=== PATIENT | female | born 1990 | race Caucasian/White ===

== ENCOUNTER → 2016-12-28 | Outpatient (CLI) | payer OTHER ==
[2016-05-15 23:15] VITALS: BP 98/65
[~2016-12-28] MED LIST: MELA10CA PO; ONDA4TAB7 PO; PENT100C PO
--- NOTE | 2016-12-28 10:39 | KCIC ---
MR of the left ankle and left foot Indication: Pain for 2 months. Stepped on by a horse. Intermittent swelling.. Technique: Standard multiplanar sequences are obtained. Left ankle Peroneal tendons: Intact, no dislocation Lateral ligaments: Poor definition of the anterior talofibular, posterior talofibular and calcaneofibular ligament compatible with scarring from old injury. No evidence of acute tear or discontinuity. Tibiofibular syndesmosis:Intact. Medial tendons: Posterior tibial and flexor tendons are intact. Medial ligaments: No evidence of acute deltoid ligament tear Anterior tendons: Anterior tibial and extensor tendons are intact. Achilles tendon: Intact Plantar aponeurosis: No acute plantar fasciitis Subtalar joints: Patent Tarsal sinus: Intact Talar Dome: Intact Bones: No significant lesion or acute fracture Fluid: No large effusion. Joints: Mild dorsal spurring at the talonavicular joint. Soft tissues: Small cyst or ganglion posterior to the posterior subtalar joint measures 19 mm diameter. Left foot No bone lesion or acute fracture. No acute bone marrow edema. Lisfranc ligament complex is intact as is tarsometatarsal alignment. No significant tendon tear or tendon sheath fluid. No abnormal soft tissue edema or fluid collection. Impression: 1. Findings compatible with mild lateral ankle ligament scarring. No acute rupture or discontinuity. 2. Small ganglion cyst, posterior to the posterior subtalar joint. Electronically signed by: Clement Pope MD (12/28/2016 10:35 AM) [facility]
--- NOTE | 2016-12-29 11:58 | KCIC ---
MR of the left ankle and left foot Indication: Pain for 2 months. Stepped on by a horse. Intermittent swelling.. Technique: Standard multiplanar sequences are obtained. Left ankle Peroneal tendons: Intact, no dislocation Lateral ligaments: Poor definition of the anterior talofibular, posterior talofibular and calcaneofibular ligament compatible with scarring from old injury. No evidence of acute tear or discontinuity. Tibiofibular syndesmosis:Intact. Medial tendons: Posterior tibial and flexor tendons are intact. Medial ligaments: No evidence of acute deltoid ligament tear Anterior tendons: Anterior tibial and extensor tendons are intact. Achilles tendon: Intact Plantar aponeurosis: No acute plantar fasciitis Subtalar joints: Patent Tarsal sinus: Intact Talar Dome: Intact Bones: No significant lesion or acute fracture Fluid: No large effusion. Joints: Mild dorsal spurring at the talonavicular joint. Soft tissues: Small cyst or ganglion posterior to the posterior subtalar joint measures 19 mm diameter. Left foot No bone lesion or acute fracture. No acute bone marrow edema. Lisfranc ligament complex is intact as is tarsometatarsal alignment. No significant tendon tear or tendon sheath fluid. No abnormal soft tissue edema or fluid collection. Impression: 1. Findings compatible with mild lateral ankle ligament scarring. No acute rupture or discontinuity. 2. Small ganglion cyst, posterior to the posterior subtalar joint. Electronically signed by: Mehrdad Pope MD (12/28/2016 10:35 AM) [facility] DICTATED and SIGNED BY: MEHRDAD POPE MD DATE: 12/28/16 1025 MTDD
== END | disposition home or self-care (01) ==
LOC: KCIC MRI 09:07
PROVIDERS: ATTEND Nurse Practitioner Gerontology
DX: M67.472 Ganglion, left ankle and foot (principal); W55.19XA Other contact with horse, initial encounter
CPT/HCPCS: 73718; 73721

== ENCOUNTER → 2017-03-05 | Outpatient (CLI) | payer OTHER ==
[2016-05-15 23:15] VITALS: BP 98/65
--- NOTE | 2017-03-05 12:04 | RAD ---
INDICATION: Low back pain and bilateral radiculopathy for 5 months. Fall from horse 5 months ago. TECHNIQUE: Sagittal T1, sagittal T2, sagittal STIR, axial T1, and axial T2 sequences are provided. No comparison is available. FINDINGS: There is no malalignment. There is no marrow edema. There is no worrisome marrow lesion. There is preservation of disc height and discs appear well-hydrated. The conus medullaris is normal in signal intensity and in position, only evaluated in sagittal plane. There is minimal subcutaneous edema. There are minimal disc bulges at L4-L5 and L5-S1 along with minimal facet hypertrophy at these 2 levels. There is no disc herniation. There is no canal or foraminal compromise at any level. IMPRESSION: Minimal degenerative disc disease at L4-L5 and L5-S1, without any high-grade canal or foraminal compromise. Electronically signed by: Bryson Ortega MD (03/05/2017 12:00 PM) [facility]
== END | disposition home or self-care (01) ==
LOC: MRI 10:01
PROVIDERS: ATTEND Family Medicine
DX: M51.36 Other intervertebral disc degeneration, lumbar region (principal); M51.37 Other intervertebral disc degeneration, lumbosacral region; M54.16 Radiculopathy, lumbar region; V80.010A Animal-rider injured by fall from or being thrown from horse in noncollision accident, initial encounter; Y93.52 Activity, horseback riding
CPT/HCPCS: 72148

== ENCOUNTER 2017-05-21 18:56 | Emergency (ER) | payer OTHER ==
[~2017-05-21] VITALS: Ht 170.2 cm; Wt 90.7 kg
[2017-05-21] MEDS ORDERED: IV NORMAL SALINE 1000ML BAG 1,000 ML IV SCH (19:42)
[2017-05-21] MEDS ORDERED: ONDANSETRON PF 4 MG/2 ML VIAL. IV ONE ×2 (19:45→21:30)
[2017-05-21] MEDS ORDERED: FAMOTIDINE 20 MG/2 ML VIAL IVP ONE (19:45)
[2017-05-21 19:52] LABS: BASO % 0 % (0-3); EOS % 1 % (0-3); HEMATOCRIT 39.1 % (36.0-47.0); LYMPH # 0.7 x10^3/uL (1.0-4.8); LYMPH % 4 % (24-48); MEAN CORPUSCULAR HEMOGLOBIN 29 pg (25-35); MEAN CORPUSCULAR HGB CONC 33 g/dL (31-37); MEAN CORPUSCULAR VOLUME 87 fL (79-100); MONO % 6 % (0-9); NEUT % 90 % (31-73); PLATELET COUNT 337 x10^3/uL (140-400); RED BLOOD COUNT 4.49 x10^6/uL (3.50-5.40); RED CELL DISTRIBUTION WIDTH 13.9 % (11.5-14.5); WHITE BLOOD COUNT 16.9 x10^3/uL (4.0-11.0)
[2017-05-21] MEDS: fentaNYL PF VIAL 100 MCG/2 ML VIAL IV PRN ×2 (19:52→21:03)
[2017-05-21 19:54] LABS: BILIRUBIN,URINE NEGATIVE (NEG); GLUCOSE,URINE NEGATIVE (NEG); NITRITE,URINE NEGATIVE (NEG); PH,URINE 8.5; PROTEIN,URINE NEGATIVE (NEG-TRACE); UROBILINOGEN,URINE 0.2 mg/dL (0.2 mg/dL)
[2017-05-21 20:06] LABS: BACTERIA,URINE MODERATE /HPF (0-FEW); RBC,URINE RARE /HPF (0-2); SQUAMOUS EPITHELIAL CELL,UR MOD /LPF
[2017-05-21 20:07] LABS: CALCIUM 9.2 mg/dL (8.5-10.1); CREATININE 0.9 mg/dL (0.6-1.0); GFR 75.1; POTASSIUM 3.7 mmol/L (3.5-5.1)
[2017-05-21 20:10] LABS: ALBUMIN 3.8 g/dL (3.4-5.0); TOTAL BILIRUBIN 0.3 mg/dL (0.2-1.0); TOTAL PROTEIN 7.7 g/dL (6.4-8.2)
[2017-05-21] MEDS ORDERED: IV NORMAL SALINE 1000ML BAG 1,000 ML IV ONE (20:30)
[2017-05-21] MEDS ORDERED: ONDA4TAB10 SL (20:58)
[2017-05-21 21:00] VITALS: BP 98/63
--- NOTE | 2017-05-21 21:03 | PHYS DOC ---
Past Medical History Past Medical History: Anemia, Anxiety, Arthritis, Other Additional Past Medical Histor: interstitial cystitis, hormone imbalance, chronic back pain Past Surgical History: Hysterectomy, Tubal ligation, Other Additional Past Surgical Histo: exploratory surgery TO CHECK FOR ENDOMETRIOSIS Alcohol Use: None Drug Use: None Adult General Chief Complaint Chief Complaint: NAUSEA/VOMITING/DIARRHA HPI HPI Patient is a 26 year old female who presents with complaint of nausea, vomiting , diarrhea, and abdominal pain. Patient states that her symptoms started suddenly today. Patient states that she's had too numerous to count episodes of vomiting and has had 2 loose stools since onset of symptoms. Patient states that she is having abdominal pain which is generalized and nonfocal. Patient reports family members at her home with similar symptoms prior to her onset of symptoms. Patient denies any ingestion of spoiled food. Patient has had no fevers associated with her symptoms. Patient has not taken any medications at home to help with her symptoms. Patient has history of chronic back pain and states that her symptoms have exacerbated her back pain. Patient also states she feels very dehydrated and has not been able to drink enough fluids to stay hydrated. Review of Systems Review of Systems Constitutional: Denies fever or chills [] Eyes: Denies change in visual acuity, redness, or eye pain [] HENT: Denies nasal congestion or sore throat [] Respiratory: Denies cough or shortness of breath [] Cardiovascular: Denies chest pain or edema[] GI: Nausea, vomiting, diarrhea, abdominal pain[] : Denies dysuria or hematuria [] Musculoskeletal: Back pain[] Integument: Denies rash or skin lesions [] Neurologic: Denies headache, focal weakness or sensory changes [] All other systems were reviewed and found to be within normal limits, except as documented in this note. Current Medications Current Medications Current Medications Medications (Trade) Dose Ordered Sig/Elisa Start Time Stop Time Status Last Admin Dose Admin Famotidine (Pepcid Vial) 20 mg 1X ONCE 05/21/17 19:45 05/21/17 19:47 DC 05/21/17 19:51 20 MG Fentanyl Citrate (Fentanyl 2ml Vial) 50 mcg PRN Q15MIN PRN 05/21/17 19:45 05/22/17 19:44 05/21/17 19:52 50 MCG Ondansetron HCl (Zofran) 4 mg 1X ONCE 05/21/17 19:45 05/21/17 19:47 DC 05/21/17 19:52 4 MG Sodium Chloride 1,000 ml @ 1,000 mls/hr 1X ONCE 05/21/17 20:30 05/21/17 21:29 05/21/17 20:40 1,000 MLS/HR Allergies Allergies Allergies Coded Allergies Type Severity Reaction Last Updated Verified Penicillins Allergy Unknown rash 10/01/13 Yes Physical Exam Physical Exam Constitutional: Alert, afebrile, appears ill. [] HENT: Normocephalic, atraumatic, bilateral external ears normal, oropharynx moist, no oral exudates, nose normal. [] Eyes: PERRLA, EOMI, conjunctiva normal, no discharge. [] Neck: Normal range of motion, no tenderness, supple, no stridor. [] Cardiovascular: Tachycardia, regular rhythm, no murmur [] Lungs & Thorax: Bilateral breath sounds clear to auscultation [] Abdomen: Bowel sounds normal, soft, minimal tenderness to palpation in all 4 quadrants with no guarding or rebound tenderness, no masses, no pulsatile masses. [] Skin: Warm, dry, no erythema, no rash. [] Back: No tenderness, no CVA tenderness. [] Extremities: No tenderness, no cyanosis, no clubbing, ROM intact, no edema. [] Neurologic: Alert and oriented X 3, normal motor function, normal sensory function, no focal deficits noted. [] Current Patient Data Vital Signs Vital Signs Date Time Temp Pulse Resp B/P (MAP) Pulse Ox O2 Delivery O2 Flow Rate FiO2 05/21/17 19:10 98.2 102 18 110/61 (77) 99 Room Air 98.2 Lab Values Laboratory Tests Test 05/21/17 19:20 White Blood Count 16.9 x10^3/uL (4.0-11.0) H Red Blood Count 4.49 x10^6/uL (3.50-5.40) Hemoglobin 13.0 g/dL (12.0-15.5) Hematocrit 39.1 % (36.0-47.0) Mean Corpuscular Volume 87 fL (79-100) Mean Corpuscular Hemoglobin 29 pg (25-35) Mean Corpuscular Hemoglobin Concent 33 g/dL (31-37) Red Cell Distribution Width 13.9 % (11.5-14.5) Platelet Count 337 x10^3/uL (140-400) Neutrophils (%) (Auto) 90 % (31-73) H Lymphocytes (%) (Auto) 4 % (24-48) L Monocytes (%) (Auto) 6 % (0-9) Eosinophils (%) (Auto) 1 % (0-3) Basophils (%) (Auto) 0 % (0-3) Neutrophils # (Auto) 15.2 x10^3uL (1.8-7.7) H Lymphocytes # (Auto) 0.7 x10^3/uL (1.0-4.8) L Monocytes # (Auto) 0.9 x10^3/uL (0.0-1.1) Eosinophils # (Auto) 0.1 x10^3/uL (0.0-0.7) Basophils # (Auto) 0.0 x10^3/uL (0.0-0.2) Urine Collection Type Void Urine Color Yellow Urine Clarity Clear Urine pH 8.5 Urine Specific Weaver >=1.030 Urine Protein Negative mg/dL (NEG-TRACE) Urine Glucose (UA) Negative mg/dL (NEG) Urine Ketones (Stick) Trace mg/dL (NEG) Urine Blood Negative (NEG) Urine Nitrite Negative (NEG) Urine Bilirubin Negative (NEG) Urine Urobilinogen Dipstick 0.2 mg/dL (0.2 mg/dL) Urine Leukocyte Esterase Small (NEG) Urine RBC Rare /HPF (0-2) Urine WBC 5-10 /HPF (0-4) Urine Squamous Epithelial Cells Mod /LPF Urine Bacteria Moderate /HPF (0-FEW) Urine Mucus Marked /LPF Sodium Level 139 mmol/L (136-145) Potassium Level 3.7 mmol/L (3.5-5.1) Chloride Level 104 mmol/L (98-107) Carbon Dioxide Level 22 mmol/L (21-32) Anion Gap 13 (6-14) Blood Urea Nitrogen 23 mg/dL (7-20) H Creatinine 0.9 mg/dL (0.6-1.0) Estimated GFR (Cockcroft-Gault) 75.1 BUN/Creatinine Ratio 26 (6-20) H Glucose Level 103 mg/dL (70-99) H Calcium Level 9.2 mg/dL (8.5-10.1) Total Bilirubin 0.3 mg/dL (0.2-1.0) Aspartate Amino Transferase (AST) 21 U/L (15-37) Alanine Aminotransferase (ALT) 36 U/L (14-59) Alkaline Phosphatase 68 U/L (46-116) Total Protein 7.7 g/dL (6.4-8.2) Albumin 3.8 g/dL (3.4-5.0) Albumin/Globulin Ratio 1.0 (1.0-1.7) Lipase 192 U/L (73-393) Laboratory Tests 05/21/17 19:20 Laboratory Tests 05/21/17 19:20 EKG EKG Not performed[] Radiology/Procedures Radiology/Procedures Not performed[] Course & Med Decision Making Course & Med Decision Making Pertinent Labs and Imaging studies reviewed. (See chart for details) The patient was treated with IV fluids, fentanyl, Pepcid, and Zofran. On reevaluation, patient states her symptoms have improved. The patient's symptoms appear consistent with an acute viral gastroenteritis. Patient states that she would like to go home at this time. The patient was prescribed Zofran for continued outpatient treatment and nausea. Advised to continue on liquid diet at home and follow-up with primary doctor in 2 days for reevaluation. Advised return emergency department for any worsening symptoms. Patient voiced understanding and in agreement with treatment plan. Dragon Disclaimer Dragon Disclaimer This electronic medical record was generated, in whole or in part, using a voice recognition dictation system. Departure Departure Impression: Primary Impression: Nausea and vomiting Additional Impressions: Diarrhea Dehydration Disposition: 01 HOME, SELF-CARE Condition: IMPROVED Referrals: MARLENA HUSSEIN MD (PCP) Patient Instructions: Dehydration, Adult, Diarrhea, Nausea and Vomiting Additional Instructions: Follow-up he primary doctor in 2-3 days for reevaluation. Return to the emergency department for any worsening symptoms. Scripts Ondansetron (ZOFRAN ODT) 4 Mg Tab.rapdis 1 TAB SL Q6HRS Y for NAUSEA/VOMITING, #15 TAB Prov: CATINA VAZQUEZ MD 05/21/17 Problem Qualifiers Primary Impression: Nausea and vomiting Vomiting type: unspecified Vomiting Intractability: unspecified Qualified Codes: R11.2 - Nausea with vomiting, unspecified Additional Impressions: Diarrhea Diarrhea type: presumed infectious Qualified Codes: A09 - Infectious gastroenteritis and colitis, unspecified CATINA VAZQUEZ MD May 21, 2017 21:03
== END 2017-05-21 21:19 | disposition home or self-care (01) ==
LOC: ER 18:56
DX: E86.0 Dehydration (principal); A09 Infectious gastroenteritis and colitis, unspecified; F41.9 Anxiety disorder, unspecified; G89.29 Other chronic pain; M19.90 Unspecified osteoarthritis, unspecified site; Z88.0 Allergy status to penicillin; Z90.710 Acquired absence of both cervix and uterus
CPT/HCPCS: 36415; 80053; 81001; 83690; 85025; 87086; 96361; 96374; 96375; 96376; 99285; J2405; J3010; J7030; S0028

== ENCOUNTER → 2017-07-11 | Outpatient (CLI) | payer OTHER | END | disposition home or self-care (01) | LOC: PNCL 10:42 | DX: M51.36 Other intervertebral disc degeneration, lumbar region (principal); M79.604 Pain in right leg; F17.210 Nicotine dependence, cigarettes, uncomplicated; Z83.3 Family history of diabetes mellitus; Z88.0 Allergy status to penicillin | CPT/HCPCS: 99214 ==

== ENCOUNTER → 2017-08-22 | Outpatient (CLI) | payer OTHER | END | disposition home or self-care (01) | LOC: PNCL 10:13 | DX: M51.16 Intervertebral disc disorders with radiculopathy, lumbar region (principal); M47.896 Other spondylosis, lumbar region | CPT/HCPCS: 99212 ==

== ENCOUNTER → 2017-11-08 | Outpatient (CLI) | payer OTHER | END | disposition home or self-care (01) | LOC: PNCL 15:12 | DX: M51.16 Intervertebral disc disorders with radiculopathy, lumbar region (principal); M47.896 Other spondylosis, lumbar region | CPT/HCPCS: 99212 ==

== ENCOUNTER → 2017-11-30 | Outpatient (CLI) | payer OTHER ==
[~2017-11-30] MED LIST changes: +IOHEXOL 180 MG/ML 10 ML VIAL.; +LIDOCAINE 1% PF 2 ML VIAL.; -MELA10CA PO; -ONDA4TAB7 PO; -PENT100C PO; +methylPREDNISolone ACETATE 40 MG/ML VIAL.; +methylPREDNISolone ACETATE 80 MG/ML VIAL.
== END | disposition home or self-care (01) ==
LOC: PNCL 09:59
DX: M51.16 Intervertebral disc disorders with radiculopathy, lumbar region (principal); M47.816 Spondylosis without myelopathy or radiculopathy, lumbar region; Z88.0 Allergy status to penicillin; Z90.710 Acquired absence of both cervix and uterus; Z98.51 Tubal ligation status; Z98.890 Other specified postprocedural states
CPT/HCPCS: 62323; J1030; J1040; Q9965

== ENCOUNTER → 2018-03-12 | Outpatient (CLI) | payer OTHER ==
[~2018-03-12] MED LIST changes: -IOHEXOL 180 MG/ML 10 ML VIAL.; -LIDOCAINE 1% PF 2 ML VIAL.; +MELA10CA PO; +ONDA4TAB10 SL; +ONDA4TAB7 PO; +PENT100C PO; +TIZA4TAB PO; -methylPREDNISolone ACETATE 40 MG/ML VIAL.; -methylPREDNISolone ACETATE 80 MG/ML VIAL.
--- NOTE | 2018-03-12 23:06 | PAIN ---
DATE OF SERVICE: 03/12/2018 DIAGNOSES: Lumbar radiculopathy with lumbar degenerative disk disease, lumbar and lumbosacral spondylosis. HISTORY OF PRESENT ILLNESS: The patient is a 27-year-old female who returns for followup status post lumbar epidural steroid injection x 1. The patient reports she did fairly well about a 50% improvement for about a month and gradually returned with pain in the low back. The right lower leg, however, is doing much better. The patient reports there is still some tingling and numbness occasionally with walking and standing, but doing much better. Her main complaint is her low back pain without significant radiation. At this time, the patient reports it an aching, sharp, dull, stabbing, burning, tingling, becoming more constant in the low back, worse with standing, walking, even with prolonged sitting for more than 15-20 minutes. The patient reports it is awakening her from sleep about 2-3 times a night on average with pain in the back itself. The patient reports the pain is an 8 on a scale of 10 at its worst, 6 on average, 5 at its least and is a 6 today. The patient reports no new motor or sensory deficits, has still significant pain across the low back itself. She has been increasing her activity and is walking about 5 miles a day through her activities at work as well, doing some stretching and strengthening exercises on her own as she has had some physical therapy in the past and she is still doing the exercises with these, but the pain is still persistent. PHYSICAL EXAMINATION: VITAL SIGNS: The patient's blood pressure is 117/80, pulse 99, respirations 18, temperature is 98.6 degrees Fahrenheit, height is 5 feet 7 inches and weight is 205 pounds. GENERAL: The patient is awake, alert, oriented, appropriate, very pleasant demeanor. HEENT: Shows normocephalic, atraumatic. Extraocular movements are intact and symmetrical. Oral cavity: Mucous membranes moist and pink. Dentition is intact. NECK: Shows anterior throat supple without palpable lymphadenopathy noted. Swallow reflex is symmetrical. CHEST: Shows normal on inspection. Breath sounds clear to auscultation bilaterally. HEART: Shows S1, S2 clear. No murmurs auscultated. ABDOMEN: Soft, nontender, nondistended. No palpable organomegaly. No rebound or guarding demonstrated. BACK: Shows spine grossly in the midline, normal appearing thoracic kyphosis and minor flattening of lumbar lordotic curvature. Lumbar paraspinous muscle shows symmetrical on inspection. On palpation shows some moderate tenderness, but only diffusely with palpation bilaterally. With rotational motion, however, the patient has significant tenderness with extension of the lumbar spine and axial loading of the low back, which is very tender on both sides, right and left without specific radiation. This is true with right and left lateral rotation, slightly more to the right than the left, but not with forward flexion, was performed fully at 45 degrees without significant pain reported. EXTREMITIES: The patient's lower extremities show deep tendon reflexes at 2+ in the patellar, 1+ tendo calcaneus tendons. Motor exam is approximately 4 on a scale of 5 with right dorsiflexion and extension, 5/5 on the left. Peripheral pulses are 1+ posterior tibia. No peripheral edema is noted. Options were discussed with the patient. The patient's old chart reviewed as is her current medication regimen updated. Current review of systems is updated today as well and we will preauthorize the patient for bilateral lumbar facet joint injection at the L4-L5 and L5-S1 levels. She is having significant axial loading pain with extension of the lumbar spine consistent with facet joint syndrome and facet mediated pain. The patient will continue to do her physical therapy exercises as she is doing strengthening and stretching exercises on her own and continue with her walking. The patient was cautioned as to heavy lifting and extended time on her feet as well as extended time sitting as well. The patient will return to the clinic once preauthorization is obtained. We will plan on bilateral L4-L5 and L5-S1 facet joint injections at that time. ILIA OSBORNE MD DR: GEORGINA/linwood JOB#: [id number] / [id number]
== END | disposition home or self-care (01) ==
LOC: PNCL 15:01
PROVIDERS: ATTEND Anesthesiology
DX: M51.16 Intervertebral disc disorders with radiculopathy, lumbar region (principal); M47.897 Other spondylosis, lumbosacral region; Z86.2 Personal history of diseases of the blood and blood-forming organs and certain disorders involving the immune mechanism; Z86.39 Personal history of other endocrine, nutritional and metabolic disease; Z90.710 Acquired absence of both cervix and uterus; Z88.0 Allergy status to penicillin; Z83.3 Family history of diabetes mellitus; Z82.49 Family history of ischemic heart disease and other diseases of the circulatory system
CPT/HCPCS: 99212

== ENCOUNTER → 2018-03-29 | Outpatient (CLI) | payer OTHER ==
[~2018-03-29] MED LIST changes: +BUPIVACAINE MPF 0.25% 10 ML VIAL. ONE; +IOHEXOL 180 MG/ML 10 ML VIAL. ONE; +LIDOCAINE 2% PF Vial for OR 5 ML VIAL. ONE; +methylPREDNISolone ACETATE 40 MG/ML VIAL. ONE; +methylPREDNISolone ACETATE 80 MG/ML VIAL. ONE
--- NOTE | 2018-03-29 22:33 | PAIN ---
DATE OF SERVICE: 03/29/2018 DIAGNOSES: Lumbar degenerative disk disease with lumbar and lumbosacral spondylosis. History of present illness: The patient is a 27-year-old female who returns for followup status post lumbar epidural steroid injection x 1 with good relief of the pain in her leg with still significant pain in the low back. We had preauthorized her for bilateral facet joint injections today. She would like to proceed with this, still significant pain in the low back bilaterally, somewhat worse on the right than the left present bilaterally without specific radiation into the lower extremity at this time. The patient reports the pain is tingling, burning, stabbing, becoming more constant and more severe, aching, sharp, tight. The patient reports it is shooting at times into the right hip. The patient reports it is 8 on a scale of 10 at its worst, 6 on average, 5 at its least and is a 6 today. The patient reports no new motor or sensory deficits, no new bowel or bladder incontinence or other complaints. Reports it awakens her from sleep about every 4-5 hours, worse with standing, walking, even with prolonged sitting; however, the pain is significant, especially with extension of the lumbar spine. PHYSICAL EXAMINATION: VITAL SIGNS: The patient's blood pressure 117/74, pulse 90, respirations 18, temperature 98.3 degrees Fahrenheit, height 5 feet 7 inches and weight is 206 pounds. GENERAL: The patient is awake, alert, oriented, appropriate, very pleasant in demeanor. HEENT: Head shows normocephalic, atraumatic. Extraocular movements intact and symmetrical. Oral cavity: Mucous membranes are moist and pink. Dentition is intact. NECK: Shows anterior throat supple without palpable lymphadenopathy noted. Swallow reflex is symmetrical. CHEST: Shows normal with inspection. Breath sounds clear to auscultation bilaterally. HEART: Shows S1, S2 clear. No murmurs auscultated. ABDOMEN: Soft, nontender, nondistended. No palpable organomegaly is noted. No rebound or guarding demonstrated. BACK: Shows spine grossly in the midline. The patient's back shows moderate tenderness with palpation in the lower lumbar distribution bilaterally, but without radiation. No tenderness over the sacrum or sacroiliac regions. The patient has good rotational motion with some minor tenderness with far right lateral rotation past 10 degrees as well as left lateral rotation with pain on the right side and extension, significant pain bilaterally in the low back and forward flexion decreases pain moderately. EXTREMITIES: The patient's lower extremities show deep tendon reflexes 2+ in the patellar and 1+ tendo-calcaneus tendons. Motor exam is approximately 4 on a scale of 5 with right dorsiflexion and extension, 5/5 on the left. Peripheral pulses are 1+ posterior tibial. No peripheral edema is noted. Options were discussed with the patient. The patient's old chart was reviewed as her current medication regimen updated. Current review of systems updated today as well. We will proceed with bilateral L4-L5 and L5-S1 facet joint injections today with fluoroscopic guidance. Risks were again discussed including, but not limited to bleeding, infection, possibility of epidural hematoma, subsequent neurologic compromise, dural puncture, headaches, spinal cord and/or nerve damage, side effects of steroid medication and poor results regarding pain control. The patient understands and wished to proceed. The patient is to return to clinic in approximately 2 weeks for followup. Followup was counseled as to return appointment, activity level and side effects to be aware of. DIAGNOSIS: Lumbar and lumbosacral spondylosis, lumbar degenerative disk disease. PROCEDURES: Bilateral L4-L5 and L5-S1 facet joint injections using C-arm fluoroscopic guidance under sterile prep and drape using local anesthetic. MEDICATION INJECTED: A total of 4 mL of 0.25% bupivacaine, total of 2 mL of Isovue for contrast, total of 120 mg Depo-Medrol. CONDITION AT DISCHARGE: Stable. The patient tolerated procedure well, had no complications. ILIA OSBORNE MD DR: GEORGINA/linwood JOB#: [id number] / [id number]
== END | disposition home or self-care (01) ==
LOC: PNCL 08:51
PROVIDERS: ATTEND Anesthesiology
DX: M47.817 Spondylosis without myelopathy or radiculopathy, lumbosacral region (principal); M51.36 Other intervertebral disc degeneration, lumbar region; Z88.0 Allergy status to penicillin
CPT/HCPCS: 64493; 64494; J1030; J1040; J2001; J3490; Q9965

== ENCOUNTER → 2018-04-22 | Outpatient (CLI) | payer OTHER ==
[~2018-04-22] MED LIST changes: -BUPIVACAINE MPF 0.25% 10 ML VIAL. ONE; -IOHEXOL 180 MG/ML 10 ML VIAL. ONE; -LIDOCAINE 2% PF Vial for OR 5 ML VIAL. ONE; -methylPREDNISolone ACETATE 40 MG/ML VIAL. ONE; -methylPREDNISolone ACETATE 80 MG/ML VIAL. ONE
--- NOTE | 2018-04-23 01:12 | PAIN ---
DATE OF SERVICE: 04/22/2018 PROGRESS NOTE FOR PAIN CLINIC DIAGNOSES: Lumbar degenerative disk disease with lumbar and lumbosacral spondylosis. HISTORY OF PRESENT ILLNESS: The patient is a 27-year-old female who returns to follow up status post bilateral L4-L5 and L5-S1 facet joint injections. The patient reports about 85% improvement after the injections for several days following the injection and then the pain began to return, but only gradually. It was not an abrupt return over the next 1-2 days. It came back essentially baseline in the low back, slightly worse on the right than the left. The patient reports it is a 7 on a scale of 10 at its worst, 6 on average, 4 at its least and it is a 4 today. The patient reports it is aching, sharp, dull, tight, stabbing, burning, tingling and becoming more severe, more constant in the low back itself. Occasional pain in the right posterior hip, posterior gluteus, but without radiation to the lower extremity. The patient reports it is worse with extension of the lumbar spine, especially axial loading and extension and better with forward flexion. Right and left lateral rotation is moderately tender bilaterally. The patient reports it awakens her from sleep very rarely, better off of her feet. Sitting can exacerbate it as well, however. The patient reports that she was increasing her distance walking, doing work activity, standing on her feet longer, getting in and out of a car easier for the first few days. PHYSICAL EXAMINATION: VITAL SIGNS: The patient's blood pressure is 115/81, pulse 83, respirations 18 and temperature 98.1 degrees Fahrenheit. Height is 5 feet 7 inches, weight is 204 pounds. GENERAL: The patient is awake, alert, oriented, appropriate, very pleasant demeanor. HEENT EXAMINATION: Shows normocephalic, atraumatic. Extraocular movements are intact and symmetrical. Oral cavity, mucous membranes are moist and pink. Dentition is intact. NECK: Shows anterior throat supple, without palpable lymphadenopathy noted. Swallow reflex is symmetrical. CHEST: Shows normal with inspection. Breath sounds are clear to auscultation bilaterally. HEART: Shows S1, S2 clear. No murmurs auscultated. ABDOMEN: Soft, nontender and nondistended. No palpable organomegaly is noted. No rebound or guarding demonstrated. BACK: Shows spine grossly in the midline. Normal-appearing thoracic kyphosis and some minor flattening of the lumbar lordotic curvature. Lumbar paraspinous muscle shows symmetrical on inspection. On palpation, it shows some moderate tenderness but only diffusely bilaterally without radiation. The patient shows good rotational motion with some significant tenderness with extension of the lumbar spine and axial loading bilaterally, slightly worse on the right than the left. This is true with right and left lateral rotation, greater than 10 degrees with more pain on the right than the left with rotation as well. No radiation demonstrated. EXTREMITIES: Lower extremities show deep tendon reflexes 2+ in the patellar tendons, 1+ tendo calcaneus tendons. Motor exam is approximately 4 on a scale of 5 on the right and 5/5 on the left with dorsiflexion, extension, quadriceps and hamstring flexion. Peripheral pulses are 1+ posterior tibia. No peripheral edema is noted bilaterally. Options were discussed with the patient. The patient's old chart was reviewed as was her current medication regimen updated. Current review of systems updated today as well. We will preauthorize the patient for radiofrequency ablation of the bilateral L4-L5 and L5-S1 medial branches, as the patient has done very well with the diagnostic facet injections and had diagnostic facet injections performed about 1 year ago as well with similar results and would like to proceed with radiofrequency ablation. We will wait for preauthorization and have the patient return at that time. ILIA OSBORNE MD DR: GEORGINA/linwood JOB#: [id number] / [id number]
== END | disposition home or self-care (01) ==
LOC: PNCL 14:29
PROVIDERS: ATTEND Anesthesiology
DX: M51.36 Other intervertebral disc degeneration, lumbar region (principal); M47.897 Other spondylosis, lumbosacral region
CPT/HCPCS: 99212

== ENCOUNTER → 2018-05-23 | Outpatient (CLI) | payer OTHER ==
[~2018-05-23] MED LIST changes: +BUPIVACAINE MPF 0.25% 10 ML VIAL. ONE; +LIDOCAINE 2% PF Vial for OR 5 ML VIAL. ONE; +methylPREDNISolone ACETATE 40 MG/ML VIAL. ONE; +methylPREDNISolone ACETATE 80 MG/ML VIAL. ONE
--- NOTE | 2018-05-23 20:08 | PAIN ---
DATE OF SERVICE: 05/23/2018 PROGRESS NOTE FOR PAIN CLINIC DIAGNOSES: Lumbar degenerative disk disease, lumbar and lumbosacral spondylosis. HISTORY OF PRESENT ILLNESS: The patient is a 27-year-old female who returns for followup status post lumbar facet injections with very good results about 90% improvement after the injections and scheduled for radiofrequency today. She would like to proceed with this. The patient reports still pain in the low back bilaterally, worse on the right than the left, aching, sharp, tight, dull, sometimes tingling, burning, stabbing, becoming more constant, more severe, rated 8 on a scale of 10 at its worse, 5 on average, 4 at its least and is an 8 today. The patient reports it is worse with walking and standing, change in positions, especially with extension of the lumbar spine and axial loading as well as rotation but better with forward flexion. The patient reports no significant radiation to lower extremities and pain in the right posterior gluteus and thighs though on occasion. The patient reports no new motor or sensory deficits and no new bowel or bladder incontinence or other complaints. The patient reports it is awakening her from sleep at least every 5-6 hours. PHYSICAL EXAMINATION: VITAL SIGNS: The patient's blood pressure is 134/72, pulse 87, respirations are 16 and temperature is 98.3 degrees Fahrenheit. Height is 5 feet 7 inches and weighs 202 pounds. GENERAL: The patient is awake, alert, oriented, appropriate and very pleasant demeanor. HEENT: Head shows normocephalic and atraumatic. Extraocular movements are intact and symmetrical. Oral cavity, mucous membranes are moist and pink. Dentition is intact. NECK: Shows anterior throat supple without palpable lymphadenopathy noted. Swallow reflex symmetrical. CHEST: Shows normal on inspection. Breath sounds clear to auscultation bilaterally. HEART: Shows S1 and S2 clear. No murmurs auscultated. ABDOMEN: Obese, soft, nontender and nondistended. No palpable organomegaly is noted. No rebound or guarding demonstrated. BACK: Shows spine grossly in the midline. Normal-appearing thoracic kyphosis and some minor flattening of lumbar lordotic curvature. Lumbar paraspinous muscle shows symmetrical on inspection, on palpation shows some mild tenderness to moderate tenderness with palpation but only diffusely without radiation. The patient's back shows good rotational motion with again some moderate tenderness, greater to the right than the left with greater than 10 degrees, right rotation and also extension greater than 10 degrees is painful bilaterally, again worse on the right than the left and with forward flexion decreases the pain to a moderate extent. EXTREMITIES: The patient's lower extremities showed deep tendon reflexes at 2+ in then patella and 1+ tendo-calcaneus tendons. Motor exam is approximately 4 on a scale of 5 with right dorsiflexion and extension and 5/5 on the left. Peripheral pulses are 1+ posterior tibia. No peripheral edema is noted bilaterally. Options were discussed with the patient. The patient's old chart was reviewed as well as her current medication regimen updated. Current review of systems updated today as well. We will proceed with bilateral radiofrequency ablation of the medial branch at the L4-L5 and L5-S1 levels using C-arm fluoroscopic guidance. Risks were again discussed including, but not limited to bleeding, infection, possibility of epidural hematoma and subsequent neurological compromise, dural puncture, headaches, spinal cord and/or nerve damage, side effects of steroid medication as well as poor results regarding pain control. Potential thermal destruction of the surrounding tissues, nerve roots, motor nerves with paralysis as well as exposure to fluoroscopy. The patient understands and wished to proceed. The patient will return to the clinic in approximately 2 weeks for followup, was counseled as to return appointment, activity level and side effects to be aware of. DIAGNOSIS: Lumbar and lumbosacral spondylosis. PROCEDURE: Bilateral radiofrequency ablation, L4-L5 and L5-S1 medial branches under sterile prep and drape using local anesthetic using C-arm fluoroscopic guidance. MEDICATION INJECTED: A total of 6 mL of 2% lidocaine after motor testing, which was negative at each level but prior to radiofrequency ablation also total of 6 mL of 0.25% bupivacaine 1 mL at each level after radiofrequency ablation mixed with 120 mg total Depo-Medrol. Also, please see radiofrequency flow sheet for times, impedances, levels, temperatures, etc. CONDITION AT DISCHARGE: Stable. The patient tolerated the procedure well and had no complications. ILIA OSBORNE MD DR: GEORGINA/linwood JOB#: [id number] / [id number]
== END | disposition home or self-care (01) ==
LOC: PNCL 12:47
PROVIDERS: ATTEND Anesthesiology
DX: M47.817 Spondylosis without myelopathy or radiculopathy, lumbosacral region (principal); Z90.710 Acquired absence of both cervix and uterus; Z98.51 Tubal ligation status
CPT/HCPCS: 64635; 64636; J1030; J1040; J2001; J3490; 64493; 64494

== ENCOUNTER → 2018-06-20 | Outpatient (CLI) | payer OTHER ==
[~2018-06-20] MED LIST changes: -BUPIVACAINE MPF 0.25% 10 ML VIAL. ONE; -LIDOCAINE 2% PF Vial for OR 5 ML VIAL. ONE; -methylPREDNISolone ACETATE 40 MG/ML VIAL. ONE; -methylPREDNISolone ACETATE 80 MG/ML VIAL. ONE
--- NOTE | 2018-06-22 04:45 | PAIN ---
DATE OF SERVICE: 06/21/2018 PROGRESS NOTE FOR PAIN CLINIC DIAGNOSES: Lumbar radiculopathy with lumbar spondylosis and lumbar degenerative disk disease. HISTORY OF PRESENT ILLNESS: The patient is a 27-year-old female who returns for followup status post radiofrequency ablation in the L4-L5 and L5-S1 medial branches bilaterally. The patient reports she is doing very well at 90% improvement overall. Pain is decreased with sore for about the first week and half to 2 weeks but after that became very much more comfortable. She has been increasing her activity with greater ease and comfort, household activities, walking, standing, traveling and doing work activities as well. We would like to be released back to work. The patient reports the pain is very minimal at this time, rates it as a 3 on a scale of 10 at its worse, 1 on average, 0 at its least and is a 1 today. The patient reports it is tingling and aching at times but dull tightness in the low back, occasionally into the right lower extremity. She does have some radicular pain from a separate issue but generally well controlled. The patient reports she is sleeping well at night, doing most of daily activities with greater ease and comfort and would like to return to work. PHYSICAL EXAMINATION: VITAL SIGNS: The patient's blood pressure 113/74, pulse 79, respirations 16 and temperature 98.6 degrees Fahrenheit. Weight is 204 pounds. GENERAL: The patient is awake, alert, oriented, appropriate and very pleasant demeanor. HEENT: Head shows normocephalic and atraumatic. Extraocular movements are intact and symmetrical. Oral cavity: Mucous membranes moist and pink. Dentition intact. NECK: Shows anterior throat supple without palpable lymphadenopathy noted. Swallow reflex symmetrical. CHEST: Shows normal on inspection. Breath sounds clear to auscultate bilaterally. HEART: Shows S1 and S2 clear. No murmurs auscultated. ABDOMEN: Soft, nontender and nondistended. No palpable organomegaly is noted. No rebound or guarding demonstrated. BACK: Shows spine grossly in the midline. Normal appearing thoracic kyphosis, lumbar lordotic curvature. Lumbar paraspinous muscle shows symmetrical on inspection. It is only very mild tenderness with palpation in the low lumbar distribution but without radiation. The patient has good rotational motion with much better improvement with decreased pain with extension from previous exam. Forward flexion performed fully without difficulty as well as and left lateral rotation past 10 degrees. EXTREMITIES: The patient's lower extremities show deep tendon reflexes at 2+ in the patellar and are 1+ in the tendo-calcaneus tendons. Motor exam is strong with 4/5 right, 5/5 left dorsiflexion, extension, quadriceps and hamstring flexion. Peripheral pulses are 1+ posterior tibial. No peripheral edema is noted bilaterally. Options were discussed with the patient. The patient's old chart was reviewed as well as her current medication regimen updated. Current review of systems updated and we will hold on any further procedures at this time. The patient was encouraged to increase her activity as tolerated. I would like a note for work as she feels she can perform her activities at work without significant impairment or restriction. The patient was given a note reflecting this and will follow up at this time on an as needed basis. ILIA OSBORNE MD DR: GEORGINA/linwood JOB#: [id number] / [id number]
== END | disposition home or self-care (01) ==
LOC: PNCL 13:01
PROVIDERS: ATTEND Anesthesiology
DX: M47.26 Other spondylosis with radiculopathy, lumbar region (principal); M51.36 Other intervertebral disc degeneration, lumbar region
CPT/HCPCS: G0463

== ENCOUNTER → 2019-05-21 | Outpatient (CLI) | payer OTHER ==
[~2019-05-21] MED LIST changes: -TIZA4TAB PO; +TIZA4TAB2 PO
--- NOTE | 2019-05-21 10:45 | PAIN ---
DATE OF SERVICE: 05/21/2019 PROGRESS NOTE FOR PAIN CLINIC DIAGNOSES: Lumbar and lumbosacral spondylosis. HISTORY OF PRESENT ILLNESS: The patient is a 28-year-old female who returns for followup status post radiofrequency ablation performed on 05/23/2018. The patient did very well with near 100% improvement for about 8 months. The patient reports the pain began to return after that time in the low back itself, but not radiating into the lower extremities. The patient reports it is in the low back bilaterally, somewhat worse on the right than the left, but present bilaterally, worse with extension of the lumbar spine and axial loading of the low back, also rotational motion, especially to the right, but also to the left. The patient reports it is worse with position changing, standing, walking, also with prolonged sitting, better with lying down, has been awaken her from sleep over the past month about every 4-6 hours. The patient reports the pain is 8 on a scale of 10 at its worst in the past week, 5 on average, 4 at its least and is a 5 today. The patient reports it is aching, sharp, tight, dull, shooting across the low back with tingling, burning pain, stabbing, becoming more constant and severe in the back itself, especially with extension. 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 The patient reports no new motor or sensory deficits. Initially, she was doing much better with increased distance walking, doing work activities, household activities, cleaning. She rode her horse for the first time in years very comfortably last spring as well. The patient reports no new motor or sensory deficits, no new bowel or bladder incontinence. PHYSICAL EXAMINATION: VITAL SIGNS: The patient's blood pressure 112/77, pulse 78, respirations 16, temperature 99.0 degrees Fahrenheit, weight is 202 pounds. GENERAL: The patient is awake, alert, oriented, appropriate, very pleasant demeanor. HEENT: Shows normocephalic, atraumatic. Extraocular movements are intact and symmetrical. Oral cavity: Mucous membranes moist and pink. Dentition is intact. NECK: Shows anterior throat supple without palpable lymphadenopathy noted. Swallow reflex symmetrical. CHEST: Shows normal on inspection. Breath sounds are clear bilaterally. HEART: Shows S1, S2 clear. No murmurs auscultated. ABDOMEN: Soft, nontender, nondistended. BACK: Shows spine grossly in the midline. Normal appearing thoracic kyphosis, some minor flattening of lumbar lordotic curvature. Lumbar paraspinous muscle shows symmetrical on inspection, on palpation shows some mild tenderness superiorly and then moderate tenderness in the inferior aspect of the lumbar paraspinous musculature bilaterally. The patient shows good rotational motion with significant pain with right lateral rotation past 10 degrees, also left lateral rotation past 10 degrees with mild pain, extension of the lumbar spine, however, causes significant pain across the low back, again worse on the right than the left with axial loading of the lumbar spine. Forward flexion decreases the pain significantly. EXTREMITIES: The patient's lower extremities show deep tendon reflexes 2+ in the patellar, 1+ tendo-calcaneus tendons. Motor exam is approximately 4 on a scale of 5 on the right with dorsiflexion and extension, 5/5 on the left. Peripheral pulses are 1+ posterior tibia. No peripheral edema is noted bilaterally. Options were discussed with the patient. The patient's old chart was reviewed as her current medication regimen updated. Current review of systems updated today as well. We will preauthorize the patient for repeat radiofrequency ablation of bilateral L4-L5 and L5-S1 medial branches. The patient did very well with this in the past with about 8 months of near 100% improvement with the pain returning in identical pattern to that which she had prior to the radiofrequency ablation. The patient will continue with stretching and strengthening exercises, also is taking steroids for upper respiratory bronchitis currently. We will not give any additional oral steroids at this time. The patient will wait for preauthorization for radiofrequency ablation, again with significant pain with axial loading in the low back, L4-L5 and L5-S1 facet joints with excellent results after previous radiofrequency ablation in 04/2018. ILIA OSBORNE MD DR: GEORGINA/linwood JOB#: [id number] / [id number]
== END | disposition home or self-care (01) ==
LOC: PNCL 09:06
PROVIDERS: ATTEND Anesthesiology
DX: M47.817 Spondylosis without myelopathy or radiculopathy, lumbosacral region (principal)
CPT/HCPCS: G0463

== ENCOUNTER → 2020-04-05 | Outpatient (CLI) | payer OTHER ==
[~2020-04-05] MED LIST changes: +[UNRECOGNIZED DRUG - REMARK]
--- NOTE | 2020-04-05 14:01 | PDOC ---
Progress Note - Pain Clinic Date of Service: DOS: DATE: 04/05/20 TIME: 13:56 Diagnosis: Dx: Lumbar degenerative disc disease with lumbar and lumbosacral spondylosis History or Present Illness: HPI: 29-year-old female returns follow-up status post radiofrequency ablation most recently April 2018 patient did very well with about 8 months. Of near 100% improvement with the pain returning now in the bilateral aspects of the low back right and the left patient reports no specific radiation to the lower extremities but pain in the hips across the low back worse with standing bending the spine walking and sitting for prolonged periods patient reports is aching sharp dull tight shooting across the back with tingling and burning sensation that can be constant or severe especially with extension and axial loading of the lumbar spine such as standing for prolonged periods or driving for prolonged. Patient reports pain to 7 on scale 10 is worse over the past week 6 on average 5 its least and is a 6 today. Patient reports no new motor or sensory deficits no bowel or bladder incontinence but still significant pain in the low back itself significantly improved with radiofrequency ablation as noted of April 2018. Patient was unable to follow-up with her appointments since that time due to financial restrictions but is now wishing to follow-up and get additional treatment, as she did very well from the previous radiofrequency ablation. Patient reports no new bowel or bladder incontinence no loss of motor function but significant fatigability of the low back Physical Exam: VS: Blood pressure is 106/71 pulse 90 respirations 18 temperature 98.2 F weight is 190 pounds PE: PHYSICAL EXAMINATION: GENERAL: The patient is awake, alert, oriented, appropriate, very pleasant demeanor HEENT: Shows normocephalic, atraumatic. Extraocular movements are intact and sy mmetrical. Oral cavity: Mucous membranes moist and pink. NECK: Shows anterior throat supple without palpable lymphadenopathy noted. Swallow reflex symmetrical. CHEST: Shows normal on inspection. Breath sounds are clear bilaterally, no rales rhonchi or wheezes. HEART: Shows S1, S2 clear. No murmurs auscultated. ABDOMEN: Soft, nontender, nondistended, obese. No palpable organomegaly is noted. No rebound or guarding demonstrated. BACK: Shows spine grossly in the midline. Normal-appearing cervical lordotic curvature. There is slightly increased thoracic kyphosis, some minor flattening of the lumbar lordotic curvature. Lumbar paraspinous muscles show symmetrical on inspection, on palpation shows some moderate tenderness diffusely throughout the upper, middle and lower distribution of the paraspinous muscles bilaterally, without specific trigger points, without radiation of pain. The patient has good rotational motion of the lumbar spine, with significant pain reported with extension lumbar spine greater than 10 degrees this is better with forward flexion of 45 degrees right and left lateral rotation shows moderate tenderness bilaterally at 10 degrees right and left but without radiation into the lower extremities. No tenderness over the spinous processes, sacrum or sacroiliac regions. EXTREMITIES: Lower extremities show deep tendon reflexes 2+ in the patellar and tendo calcaneus tendons. Motor exam is 4 on a scale of 5 with right dorsiflexion, extension, quadriceps and hamstring flexion and 5/5 on the left. Peripheral pulses are 1+ posterior tibial. No peripheral edema is noted bilaterally. Lower extremities are warm and dry to touch, equal in color and appearance. SKIN: Shows warm and dry, good turgor. No edema. No sores, rashes or bruising throughout. Procedure: Procedure: Options were discussed with the patient. Patient's old chart was reviewed as her current medication regimen updated current review of systems updated today as well. We will preauthorize patient for radiofrequency ablation of the bilateral medial branches L4-5 and L5-S1. Patient done very well with this procedure in the past and has identical symptoms to those of which she had for the last treatment. Meantime patient will maintain with stretching and strength exercises oral analgesics as current. Medication Injected: Med Injected: None Condition at Discharge: Condition at Discharge: Condition at discharge is stable ILIA OSBORNE MD Apr 05, 2020 14:01
== END ==
LOC: PNCL 13:01
PROVIDERS: ATTEND Anesthesiology
DX: M51.36 Other intervertebral disc degeneration, lumbar region (principal); M47.817 Spondylosis without myelopathy or radiculopathy, lumbosacral region; M47.816 Spondylosis without myelopathy or radiculopathy, lumbar region; Z88.0 Allergy status to penicillin; Z79.899 Other long term (current) drug therapy
CPT/HCPCS: 99212; G0463

== ENCOUNTER → 2020-09-29 | Outpatient (CLI) | payer OTHER ==
[~2020-09-29] MED LIST changes: +BUPIVACAINE MPF 0.25% 10 ML VIAL. ONE; +LIDOCAINE 1% PF 2 ML VIAL. ONE; +LIDOCAINE 2% PF 5 ML VIAL. ONE; +methylPREDNISolone ACETATE 40 MG/ML VIAL. ONE; +methylPREDNISolone ACETATE 80 MG/ML VIAL. ONE
--- NOTE | 2020-09-29 14:29 | PDOC ---
Progress Note - Pain Clinic Date of Service: DOS: DATE: 09/29/20 TIME: 14:24 Diagnosis: Dx: Lumbar degenerative disease with lumbar and lumbosacral spondylosis History or Present Illness: HPI: 29-year-old female returns for follow-up status post medial branch facet blocks with good results in previous lumbar radiofrequency ablation of the medial branches L4-5 and L5S1 April 2018 with very good results 100% improvement for almost 1year. Patient reports that the pain had returned in the low back bilaterally without significant radiation of lower extremities but worse with walking standing changing position especially with extension lumbar spine and axial loading of the back better with forward flexion right left lateral rotation essentially more on the right than the left with pain and some weakness as well sensation in the lumbar spine. Patient reports has been awakened from sleep over the past few months describes pain as aching sharp tight shooting across the back tingling and burning sometimes stabbing can be constant and severe with standing and walking. Patient reports wakes her from sleep occasionally she is usually able to reposition to get back to sleep without significant difficulty. Patient reports no new motor or sensory deficits no new bowel or bladder incontinence or other complaints. Patient rates her pain as an 8 on scale 10 is worse over the past week 6 on average 5 its least is a 6 today. Physical Exam: VS: Blood pressure is 113/77 pulse 87 respirations 18 temperature 98.1 F height is 5 foot 7 inches weight is 193 pounds PE: PHYSICAL EXAMINATION: GENERAL: The patient is awake, alert, oriented, appropriate, very pleasant demeanor HEENT: Shows normocephalic, atraumatic. Extraocular movements are intact and symmetrical. Oral cavity: Mucous membranes moist and pink. Dentition is intact. NECK: Shows anterior throat supple without palpable lymphadenopathy noted. Swallow reflex symmetrical. CHEST: Shows normal on inspection. Breath sounds are clear bilaterally, no rales or rhonchi auscultated. HEART: Shows S1, S2 clear. No murmurs auscultated. ABDOMEN: Soft, nontender, nondistended, obese. No palpable organomegaly is noted. BACK: Shows spine grossly in the midline. Normal-appearing cervical lordotic curvature. There is slightly increased thoracic kyphosis, some minor flattening of the lumbar lordotic curvature. Lumbar paraspinous muscles show symmetrical on inspection, on palpation shows some moderate tenderness diffusely throughout the upper, middle and lower distribution of the paraspinous muscles without specific trigger points, without radiation of pain. The patient has good rotational motion of the lumbar spine, both laterally with moderate pain with right lateral rotation greater than 10 degrees and significant pain with left lateral rotation greater than 10 degrees also with extension lumbar spine with significant tenderness past 10 degrees better with forward flexion but not completely relieved and forward flexion performed at 45 degrees without significant limitation. EXTREMITIES: Lower extremities show deep tendon reflexes 2+ in the patellar and tendo calcaneus tendons. Motor exam is 4 on a scale of 5 with right dorsiflexion, extension, quadriceps and hamstring flexion and 5/5 on the left. Peripheral pulses are 1+ posterior tibial. No peripheral edema is noted bilaterally. Lower extremities are warm and dry to touch, equal in color and appearance. SKIN: Shows warm and dry, good turgor. No edema. No sores, rashes or bruising throughout. Procedure: Procedure: Options were discussed with the patient. Patient chart reviews her current medication regimen updated current review of systems updated today as well. We will proceed with bilateral L4-5 and L5-S1 medial branch facet radiofrequency ablation with fluoroscopic guidance. Risks were discussed including but not limited to: Bleeding, infection, possibility of epidural hematoma and subsequent neurological compromise, dural puncture, headaches, spinal cord and/or nerve damage, potential thermal damage to the surrounding structures as well as motor nerves with permanent ischemic damage, side effects of steroid medication, and poor results regarding pain control. Patient understands and wished to proceed. Medication Injected: Med Injected: Under sterile prep and drape patient in prone position using C-arm fluoroscopic guidance patient's lumbar spine was visualized in both AP oblique and lateral views using 1% lidocaine to topically anesthetize the areas overlying the L3-4, L4-5 and L5-S1 facet joints at the point of the medial branches. Using a 22-gau ge insulated radiofrequency needle with curved tips and stylette, the needles were advanced to contact the region of the facet with the medial branch targets. This was repeated at the L3-4 L4-5 and L5-S1 levels. Stylette was removed and using radiofrequency probe inserted into each needle individually at each level and then motor tested with no motor stimulation of the lower extremity. Patient did have some multifidus musculature contraction in the lumbar spine only but without radiation. At this time 1 cc of 2% lidocaine was then injected in each needle after motor testing but prior to radiofrequency ablation. Needle position was confirmed continuously throughout the radiofrequency ablation with both AP oblique and lateral views at each level. At this time radiofrequency ablation was carried out each level for 60 seconds at 80 C x 2 at each level with the tip of the needle turned 90 degrees after the first 60 seconds and then subsequent 60 seconds of radiofrequency ablation. Once radiofrequency ablation was completed solution containing 0.25% bupivacaine 1 cc and 20 mg Depo-Medrol was injected each level. Needle was then withdrawn. The procedure was repeated for the contralateral side as described as well. Patient had no paresthesias throughout the procedure no radiation of pain into the lower extremities no lower extremity motor response with motor testing bilaterally. Please see radiofrequency flowsheet for levels, temperatures, impedance, etc. Condition at Discharge: Condition at Discharge: Condition at discharge is stable, patient already procedure well and had no complications. ILIA OSBORNE MD Sep 29, 2020 14:29
== END | disposition home or self-care (01) ==
LOC: PNCL 12:57
PROVIDERS: ATTEND Anesthesiology
DX: M51.36 Other intervertebral disc degeneration, lumbar region (principal); M47.817 Spondylosis without myelopathy or radiculopathy, lumbosacral region; F17.210 Nicotine dependence, cigarettes, uncomplicated; Z90.710 Acquired absence of both cervix and uterus; Z98.51 Tubal ligation status; Z98.890 Other specified postprocedural states; Z79.899 Other long term (current) drug therapy; Z88.0 Allergy status to penicillin
CPT/HCPCS: 64635; 64636; J1030; J1040; J3490

== ENCOUNTER → 2020-10-27 | Outpatient (CLI) | payer OTHER ==
[~2020-10-27] MED LIST changes: -BUPIVACAINE MPF 0.25% 10 ML VIAL. ONE; -LIDOCAINE 1% PF 2 ML VIAL. ONE; -LIDOCAINE 2% PF 5 ML VIAL. ONE; -methylPREDNISolone ACETATE 40 MG/ML VIAL. ONE; -methylPREDNISolone ACETATE 80 MG/ML VIAL. ONE
--- NOTE | 2020-10-27 11:35 | PDOC ---
Progress Note - Pain Clinic Date of Service: DOS: DATE: 10/27/20 TIME: 11:32 Diagnosis: Dx: Lumbar degenerative disease with lumbar and lumbosacral spondylosis History or Present Illness: HPI: 30-year-old female returns for follow-up status post radiofrequency ablation chris ateral L4-5 and L5-S1 medial branches. Patient reports she did very well about 80 to 90% improvement currently lasting been about 1 month since her procedure. Patient reports her pain is decreased significantly she is increased her activity to greater ease and comfort doing walking household activities work activities travel with greater ease and comfort sleeping better at night does not awaken her from sleep patient reports she is very pleased with her progress thus far rates the pain 3 on scale 10 is absolute worst over the past week 2 on average 0 its least is a 1 today patient reports aching and tight at times in the back with some tingling but significantly reduced after the procedure. She reports no new motor or sensory deficits no new bowel or bladder incontinence or other complaints. Physical Exam: VS: Blood pressure is 105/69 pulse 81 respirations 18 temperature 98.1 F height is 5 feet 7 inches weight is 195 pounds PE: PHYSICAL EXAMINATION: GENERAL: The patient is awake, alert, oriented, appropriate, very pleasant demeanor HEENT: Shows normocephalic, atraumatic. Extraocular movements are intact and symmetrical. NECK: Shows anterior throat supple without palpable lymphadenopathy noted. Sw allow reflex symmetrical. CHEST: Shows normal on inspection. Breath sounds are clear bilaterally, no rales rhonchi wheezes auscultated. HEART: Shows S1, S2 clear. No murmurs auscultated. ABDOMEN: Soft, nontender, nondistended, obese. No palpable organomegaly is noted. BACK: Shows spine grossly in the midline. Normal-appearing cervical lordotic curvature. There is slightly increased thoracic kyphosis, some flattening of the lumbar lordotic curvature. Lumbar paraspinous muscles show symmetrical on inspection, on palpation shows some moderate tenderness diffusely throughout the upper, middle and lower distribution of the paraspinous muscles without specific trigger points, without radiation of pain. The patient has good rotational motion of the lumbar spine, both laterally as well as extension and flexion without significant difficulty. No tenderness over the spinous processes, sacrum or sacroiliac regions. EXTREMITIES: Lower extremities show deep tendon reflexes 2+ in the patellar and tendo calcaneus tendons. Motor exam is 4 on a scale of 5 with right dorsiflexion, extension, quadriceps and hamstring flexion and 5/5 on the left. Peripheral pulses are 1+ posterior tibial. No peripheral edema is noted bilaterally. Lower extremities are warm and dry to touch, equal in color and appearance. SKIN: Shows warm and dry, good turgor. No edema. No sores, rashes or bruising throughout. Procedure: Procedure: Options discussed with the patient. Patient will chart reviews her current medication regimen updated current review of systems updated today as well. As patient doing much better we will hold on any further procedures at this time. Patient was encouraged to maintain stretching strength exercises and oral analgesics as tolerated. Patient will follow up on an as-needed basis at this time. Medication Injected: Med Injected: None Condition at Discharge: Condition at Discharge: Condition at discharge is stable. ILIA OSBORNE MD October 27, 2020 11:35
== END | disposition home or self-care (01) ==
LOC: PNCL 11:00
PROVIDERS: ATTEND Anesthesiology
DX: M51.36 Other intervertebral disc degeneration, lumbar region (principal); M47.817 Spondylosis without myelopathy or radiculopathy, lumbosacral region; F17.210 Nicotine dependence, cigarettes, uncomplicated; Z79.899 Other long term (current) drug therapy; Z90.710 Acquired absence of both cervix and uterus; Z98.51 Tubal ligation status; Z98.890 Other specified postprocedural states; Z88.0 Allergy status to penicillin
CPT/HCPCS: 99212; G0463

== ENCOUNTER 2021-03-30 05:05 | Emergency (ER) | payer OTHER ==
[~2021-03-30] VITALS: Ht 170.2 cm; Wt 88.0 kg
[2021-03-30] MEDS ORDERED: ONDA4TAB12 PO (05:42)
--- NOTE | 2021-03-30 05:42 | PHYS DOC ---
Past Medical History Past Medical History: Anemia, Anxiety, Arthritis, Other Additional Past Medical Histor: interstitial cystitis, hormone imbalance, chronic back pain (TATIANA POLLARD DO) Past Surgical History: Hysterectomy, Tubal ligation, Other Additional Past Surgical Histo: exploratory surgery TO CHECK FOR ENDOMETRIOSIS (TATIANA POLLARD DO) Smoking Status: Current Every Day Smoker Alcohol Use: None Drug Use: None (TATIANA POLLARD DO) General Adult EDM: Chief Complaint: NAUSEA/VOMITING/DIARRHEA HPI: HPI: 30-year-old female who recently tested positive for coronavirus 1 week ago presents to the emergency department complaining of body aches, new cough over the last several days, vomiting and diarrhea over the last 24 hours and feeling subjectively dehydrated. She reports that she had mild symptoms in her Covid started a week ago and has gradually progressed to include vomiting and diarrhea which is the reason that she came to the emergency department tonight. She reports diarrhea and vomiting is nonbloody. She is unvaccinated. The patient denies chest pain, shortness of breath, abdominal pain, urinary symptoms, recent trauma, or any other complaints. She has a history of partial hysterectomy and has not had a menstrual cycle since 2013. (TATIANA POLLARD DO) Review of Systems: Review of Systems: Review of systems otherwise reviewed as negative except for what was mentioned in HPI (TATIANA POLLARD DO) Heart Score: C/O Chest Pain: No (TATIANA POLLARD DO) Allergies: Allergies: Allergies Coded Allergies Type Severity Reaction Last Updated Verified Penicillins Allergy Intermediate rash 05/21/17 Yes (TATIANA POLLARD DO) Physical Exam: PE: Constitutional: No acute distress, non-toxic appearance. HENT: Atraumatic, bilateral external ears normal, nose normal. Eyes: PERRLA, EOMI, conjunctiva normal, no discharge. Neck: Normal range of motion, supple, no stridor. Cardiovascular: Heart rate regular rhythm. 2+ radial pulses Lungs & Thorax: No respiratory distress, symmetrical expansion. Bilateral breath sounds clear to auscultation Abdomen: Soft, no tenderness Skin: Warm, dry. Extremities: No tenderness, no cyanosis, ROM intact, no edema. Neurologic: Alert and oriented X 3, normal motor function, normal sensory function, no focal deficits noted. Non ataxic gait. GCS 15. Psychologic: Affect normal, judgment normal, mood normal. (TATIANA POLLARD DO) Course & Med Decision Making: Course & Med Decision Making Patient with typical symptoms for Covid, she was given fluids, Zofran, Toradol, labs were ordered along with an x-ray. Patient has no supplemental oxygen requirement at the time of my initial exam 0600: Transfer of care to Dr. Yoo at this time Patient's current medical course discussed in rounds and patient is currently updated with medical plan Pending diagnostics, reassessment (TATIANA POLLARD DO) Course & Med Decision Making Patient was signed out to me at the beginning of my shift. Work-up has returned unremarkable. Chest x-ray and labs were reassuring. (TAMMY YOO MD) Departure Departure Impression: Primary Impression: COVID-19 Additional Impression: Vomiting Disposition: HOME / SELF CARE / HOMELESS Condition: STABLE Referrals: MARLENA HUSSEIN MD (PCP) Patient Instructions: Nausea and Vomiting, [id number] Additional Instructions: You were seen in the emergency department for nausea and vomiting. You could have a viral illness which should resolve in the next few days to a week. Drink at least 6-8 glasses of water per day to help stay hydrated if you can tolerate drinking water. You may also supplement with gatorade. Please avoid alcohol while you are ill. You should return to the ED if you develop abdominal pain, fever > 100.3, black/bloody stools, black/bloody vomiting, cannot eat or drink without vomiting, or have any other new or concerning symptoms. You were seen in the emergency department for a upper respiratory tract infection, most likely from COVID-19. You should return to the ED if you develop worsening cough, shortness of breath, chest pain, or any other new or concerning symptoms. You can use an OTC sinus rinse to help with sinus congestion. Your cough may persist for a few weeks but your other symptoms should gradually improve. You should make sure to drink plenty of fluids at home. You may use Tylenol at home for fevers every 4-6 hours no more than 4000 mg/day. Please remember it is very important that you self isolate/quarantine at home, stay away from family and friends, and stay away from work until you are cleared by your physician or you test negative and are asymptomatic. Scripts Ondansetron (ONDANSETRON ODT) 4 Mg Tab.rapdis 4 MG PO BID PRN for NAUSEA/VOMITING for 7 Days, #14 TAB Prov: TATIANA POLLARD DO 03/30/21 TATIANA POLLARD DO Mar 30, 2021 05:42 TAMMY YOO MD Mar 30, 2021 07:17
[2021-03-30] MEDS ORDERED: ONDANSETRON PF 4 MG/2 ML VIAL. IVP ONE (05:45)
[2021-03-30] MEDS ORDERED: KETOROLAC 15 MG/ML VIAL. IVP ONE (05:45)
[2021-03-30] MEDS ORDERED: IV NORMAL SALINE 1000ML BAG 1,000 ML IV ONE (05:45)
[2021-03-30 05:57] LABS: BILIRUBIN,URINE NEGATIVE (NEG); CLARITY,URINE CLEAR; COLOR,URINE YELLOW; NITRITE,URINE NEGATIVE (NEG); PROTEIN,URINE NEGATIVE (NEG-TRACE); UROBILINOGEN,URINE 0.2 mg/dL (0.2 mg/dL)
[2021-03-30 06:23] LABS: BASO % 1 % (0-3); EOS % 0 % (0-3); HEMATOCRIT 34.8 % (36.0-47.0); HEMOGLOBIN 11.9 g/dL (12.0-15.5); LYMPH # 0.8 x10^3/uL (1.0-4.8); LYMPH % 26 % (24-48); MEAN CORPUSCULAR HEMOGLOBIN 29 pg (25-35); MEAN CORPUSCULAR HGB CONC 34 g/dL (31-37); MEAN CORPUSCULAR VOLUME 85 fL (79-100); MONO # 0.1 x10^3/uL (0.0-1.1); MONO % 5 % (0-9); NEUT # 2.1 x10^3/uL (1.8-7.7); NEUT % 69 % (31-73); PLATELET COUNT 144 x10^3/uL (140-400); RED BLOOD COUNT 4.11 x10^6/uL (3.50-5.40); RED CELL DISTRIBUTION WIDTH 14.2 % (11.5-14.5)
[2021-03-30 06:24] LABS: RBC,URINE 0 /HPF (0-2)
[2021-03-30 06:25] LABS: BACTERIA,URINE FEW /HPF (0-FEW)
[2021-03-30 06:29] LABS: CALCIUM 8.4 mg/dL (8.5-10.1); GFR 64.7; POTASSIUM 3.9 mmol/L (3.5-5.1)
[2021-03-30 06:44] LABS: U PREG PATIENT NEGATIVE (NEG)
[2021-03-30 06:59] VITALS: BP 91/55
--- NOTE | 2021-03-30 07:13 | RAD ---
XR CHEST 1V History: Reason: cough / Spl. Instructions: / History: Comparison: None. Findings: No consolidation or pleural effusion. Normal heart size. No pneumothorax. Impression: 1. No acute cardiopulmonary process. Electronically signed by: Bk Pemberton DO (03/30/2021 7:10 AM) [facility]
== END 2021-03-30 07:31 | disposition home or self-care (01) ==
LOC: ER 05:05
DX: U07.1 COVID-19 (principal); R11.10 Vomiting, unspecified; G89.29 Other chronic pain; F17.200 Nicotine dependence, unspecified, uncomplicated; Z90.710 Acquired absence of both cervix and uterus; Z98.51 Tubal ligation status; Z88.0 Allergy status to penicillin
CPT/HCPCS: 36415; 71045; 80048; 81001; 81025; 85025; 96361; 96374; 96375; 99284; J1885; J2405; J7030

== ENCOUNTER → 2021-10-14 | Outpatient (CLI) | payer OTHER ==
[~2021-10-14] MED LIST changes: +ONDA4TAB12 PO; +TIZA-75 PO; -TIZA4TAB2 PO
--- NOTE | 2021-10-14 11:40 | PDOC ---
Progress Note - Pain Clinic Date of Service: DOS: DATE: 10/14/21 TIME: 11:36 Diagnosis: Dx: Lumbar radiculopathy with lumbar degenerative disease lumbar and lumbosacral spondylosis History or Present Illness: HPI: 30-year-old female returns after radiofrequency ablation bilateral L4-5 L5-S1 levels last seen October did very well with about 90% improvement patient reports she did well through the year but her pain now has changed and is in the low back rating the bilateral lower extremities to the feet worse on the right than the left and present bilaterally patient reports this has been going on for about 4 months increasing in intensity with pain radiating now posterior gluteus posterior lateral thighs posterior calves into the feet again worse on the right side than the left but present in both lower extremities with numbness and tingling in the legs and the calves in the feet with walking and standing patient reports significant fatigability the lower extremities but no motor loss no bowel or bladder incontinence. Patient scribes the pain is aching and sharp in the back dull in the back shooting the legs tingling and burning in the legs and feet radiating can be constant severe with walking and standing patient again reports no loss of motor function but significant fatigability with ambulation and prolonged sitting. Patient reports it wakes her from sleep occasionally over the past few months as well which initially she was doing much better with all activities distance walking doing household activities travel with greater ease and comfort doing work activities. Patient rates pain as a 7 on scale 10 is worse over the past week 5 on average 3 to [place] and is a 5 today. Physical Exam: VS: Blood pressure is 111/77 pulse 88 respirations 16 temperature 90.5 F height is 5 foot 7 inches weight is 215 pounds. PE: PHYSICAL EXAMINATION: GENERAL: The patient is awake, alert, oriented, appropriate, very pleasant in demeanor HEENT: Shows normocephalic, atraumatic. Extraocular movements are intact and symmetrical. Oral cavity: Mucous membranes moist and pink. Dentition is intact. NECK: Shows anterior throat supple without palpable lymphadenopathy noted. Swallow reflex symmetrical. CHEST: Shows normal on inspection. Breath sounds are clear bilaterally, no rales rhonchi or wheezes auscultated. HEART: Shows S1, S2 clear. No murmurs auscultated. ABDOMEN: Soft, nontender, nondistended. No palpable organomegaly is noted. BACK: Shows spine grossly in the midline. Normal-appearing cervical lordotic curvature. There is slightly increased thoracic kyphosis, some mild flattening of the lumbar lordotic curvature. Lumbar paraspinous muscles show symmetrical on inspection, on palpation shows some moderate tenderness diffusely throughout the upper, middle and lower distribution of the paraspinous muscles without specific trigger points, without radiation of pain. The patient has good rotational motion of the lumbar spine, both laterally as well as extension and flexion with some moderate tenderness with extension and axial loading lumbar spine also with right and left lateral rotation slightly more to the right with pain reported but only moderately and no pain with forward flexion at 45 degrees. No tenderness over the spinous processes, sacrum or sacroiliac regions. EXTREMITIES: Lower extremities show deep tendon reflexes to in the patellar and tendo calcaneus tendons. Motor exam is 4 on a scale of 5 with right dorsiflexion, extension, quadriceps and hamstring flexion and 5/5 on the left. Peripheral pulses are 1+ posterior tibial. No peripheral edema is noted bilaterally. Lower extremities are warm and dry to touch, equal in color and appearance. SKIN: Shows warm and dry, good turgor. No edema. No sores, rashes or bruising throughout. Procedure: Procedure: Options discussed with patient. Patient's chart was reviewed as her current medication regimen updated current review of systems updated today as well. We will order MRI scan lumbar spine as it has been 5 years since her last MRI scan, showing some bulging disc at L4-5 and L5-S1 at that time. Patient now with rad icular pain bilaterally right greater than left to the bilateral feet. Pending MRI results, we will formulate plan once this is obtained. In meantime, patient was given Medrol Dosepak which was called in for her today with instructions side effects aware of discussed. Medication Injected: Med Injected: None Condition at Discharge: Condition at Discharge: Condition at discharge is stable. ILIA OSBORNE MD Oct 14, 2021 11:40
== END | disposition home or self-care (01) ==
LOC: PNCL 10:34
PROVIDERS: ATTEND Anesthesiology
DX: M51.16 Intervertebral disc disorders with radiculopathy, lumbar region (principal); M47.26 Other spondylosis with radiculopathy, lumbar region; M47.27 Other spondylosis with radiculopathy, lumbosacral region; Z87.891 Personal history of nicotine dependence; Z90.710 Acquired absence of both cervix and uterus; Z98.890 Other specified postprocedural states; Z79.899 Other long term (current) drug therapy; Z88.0 Allergy status to penicillin; Z72.89 Other problems related to lifestyle
CPT/HCPCS: 99212; G0463

== ENCOUNTER → 2021-10-21 | Outpatient (CLI) | payer OTHER ==
--- NOTE | 2021-10-21 14:03 | KCIC ---
EXAM: Lumbar spine MRI without contrast. HISTORY: Radiculopathy. TECHNIQUE: Multiplanar, multisequence magnetic resonance imaging of the lumbar spine was performed wi thout contrast. COMPARISON: 03/05/2017 FINDINGS: There is no listhesis. The vertebral bodies are normal in height and the disc spaces are pr eserved. There is no suspicious osseous lesion. There is mild diffuse decreased T1 marrow signal inte nsity, most commonly due to anemia in female patients of this age. There is minimal facet arthropathy primarily at L4-L5. There is a minimal disc bulge at this level. The conus terminates at T12. There is no disc protrusion or significant foraminal or central canal stenosis. IMPRESSION: Stable minimal degenerative change at L4-L5. No acute finding or significant foraminal or central canal stenosis. Electronically signed by: Bruna An MD (10/21/2021 2:01 PM) [id number]
== END | disposition home or self-care (01) ==
LOC: KCIC MRI 09:46
PROVIDERS: ATTEND Anesthesiology
DX: M47.26 Other spondylosis with radiculopathy, lumbar region (principal); Z87.891 Personal history of nicotine dependence; Z90.49 Acquired absence of other specified parts of digestive tract; Z90.710 Acquired absence of both cervix and uterus; Z98.51 Tubal ligation status; Z72.89 Other problems related to lifestyle; Z88.0 Allergy status to penicillin
CPT/HCPCS: 72148

== ENCOUNTER → 2021-10-28 | Outpatient (CLI) | payer OTHER ==
--- NOTE | 2021-10-28 12:49 | PDOC ---
Progress Note - Pain Clinic Date of Service: DOS: DATE: 10/28/21 TIME: 12:45 Diagnosis: Dx: Lumbar radicular pain lumbar degenerative disease Lumbar and lumbosacral spondylosis History or Present Illness: HPI: 31-year-old female returns for follow-up status post MRI scan with results discussed with the patient today showing L4-5 some degenerative change with minimal disc bulge also facet arthropathy primarily at L4-5 both minimal and severity. Patient reports still significant pain in the low back and into the hips and some in the bilateral lower extremities occasionally but mostly in the low back and hips itself patient reports pain is a 7 on scale 10 is worse over the past week 5 on average 3 to [place] is a 5 today patient reports this is worse with walking and standing better with sitting or laying down wakes her from sleep at least twice a night patient reports a tingling burning the back stabbing in the hips aching sharp tight alternating. Patient reports no loss of motor function but significant fatigability in the lower extremities with standing walking. We have tried a Medrol Dosepak and she reports it did decrease the pain by about 30%. Patient is using heat as well as some massage techniques and stretching of the low back as well. Patient reports no bowel or bladder incontinence. Physical Exam: VS: Blood pressure is 106/74 pulse 88 respirations 16 temperature is 90.7 F weight is 215 pounds. PE: PHYSICAL EXAMINATION: GENERAL: The patient is awake, alert, oriented, appropriate, very pleasant in demeanor HEENT: Shows normocephalic, atraumatic. Extraocular movements are intact and s ymmetrical. NECK: Shows anterior throat supple without palpable lymphadenopathy noted. Swallow reflex symmetrical. CHEST: Shows normal on inspection. Breath sounds are clear bilaterally. HEART: Shows S1, S2 clear. No murmurs auscultated. ABDOMEN: Soft, nontender, nondistended. BACK: Shows spine grossly in the midline. Normal-appearing cervical lordotic curvature. There is slightly increased thoracic kyphosis, some mild flattening of the lumbar lordotic curvature. Lumbar paraspinous muscles show symmetrical on inspection, on palpation shows some moderate tenderness diffusely throughout the upper, middle and lower distribution of the paraspinous musculature, without specific trigger points, without radiation of pain. The patient has good rotational motion of the lumbar spine, both laterally as well as extension and flexion with some moderate tenderness with extension and axial loading of the lumbar spine also right and left lateral rotation past 10 degrees moderate tenderness bilaterally without radiation. EXTREMITIES: Lower extremities show deep tendon reflexes 2 in the patellar and tendo calcaneus tendons. Motor exam is 4 on a scale of 5 with right dorsiflexion, extension, quadriceps and hamstring flexion and 5/5 on the left. Peripheral pulses are 1+ posterior tibial. No peripheral edema is noted bilaterally. Lower extremities are warm and dry. SKIN: Shows warm and dry, good turgor. No edema. No sores, rashes or bruising throughout. Procedure: Procedure: Options were discussed with the patient. Patient's old chart was reviewed as her current medication regimen updated current review of systems updated today as well. We will prescribe ibuprofen 800 mg 3 times daily with instructions side effects beware of discussed. Patient will take this for the next 2 weeks if not significantly improved we did discuss potential interventional techniqu es. Patient will maintain with stretching and strength exercise as well as heat and ice applications, and massage therapies for the lumbar musculature as currently. Medication Injected: Med Injected: None Condition at Discharge: Condition at Discharge: Condition at discharge is stable. ILIA OSBORNE MD October 28, 2021 12:49
== END | disposition home or self-care (01) ==
LOC: PNCL 10:49
PROVIDERS: ATTEND Anesthesiology
DX: M51.16 Intervertebral disc disorders with radiculopathy, lumbar region (principal); M47.26 Other spondylosis with radiculopathy, lumbar region; M47.27 Other spondylosis with radiculopathy, lumbosacral region; Z90.710 Acquired absence of both cervix and uterus; Z98.51 Tubal ligation status; Z98.890 Other specified postprocedural states; Z87.891 Personal history of nicotine dependence; Z72.89 Other problems related to lifestyle; Z88.0 Allergy status to penicillin
CPT/HCPCS: 99212; G0463